=== PATIENT | female | born 1995 | race American Indian/Alaskan Native ===

== ENCOUNTER 2018-04-29 01:08 | Inpatient (IN) | payer SELFPAY ==
--- NOTE | 2018-04-29 02:14 | History and Physical Report ---
History of Present Illness Date of examination: 04/29/18 Chief complaint: Contractions History of present illness: States EDC 04/22/2018, received PNC up to 36 weeks however she does not know the name of the name of the clinic or the name of the providers. She stopped going to the clinic b/c she did not have insurance. She presents now c/o contractions. Past History Past Medical History: no pertinent history Past Surgical History: no surgical history [employer] History: denies: chlamydia, gonorrhea, hepatitis B, hepatitis C, herpes, HIV , syphilis, trichomonas - Obstetrical History Expected Date of Delivery: 04/22/18 Actual Gestation: 41 Week(s) 0 Day(s) : 2 Para: 1 #1 Method of Delivery: Vaginal Medications and Allergies Allergies Allergy/AdvReac Type Severity Reaction Status Date / Time No Known Allergies Allergy Unverified 04/29/18 01:41 Review of Systems Genitourinary: contractions - Vital Signs Vital signs: Vital Signs Pulse Pulse Ox 130 H 84 04/29/18 01:30 04/29/18 01:30 Temp Pulse Resp BP Pulse Ox 97.6 F 88 18 99/57 100 04/29/18 01:35 04/29/18 02:06 04/29/18 01:35 04/29/18 01:35 04/29/18 02:06 - Physical Exam Lungs: Positive: Normal air movement Abdomen: Negative: tenderness, guarding - Obstetrical FHR: other (patient will not remain still to adequately monitor FHT's) Cervical Dilatation: 5 (per RN) Results All other labs normal. Assessment and Plan - Patient Problems (1) 41 weeks gestation of Current Visit: Yes Status: Acute (2) Limited care in third trimester Current Visit: Yes Status: Acute
[2018-04-29] MEDS ORDERED: ZOFRAN IV PRN ×2 (02:18→05:27)
[2018-04-29] MEDS ORDERED: XYLOCAINE 2% INFILTRATI ONE ×2 (02:18→03:51)
[2018-04-29] MEDS ORDERED: MINERAL OIL PO PRN (02:18)
[2018-04-29] MEDS ORDERED: BRETHINE IVP PRN (02:18)
[2018-04-29] MEDS ORDERED: SUBLIMAZE IV PRN (02:18)
[2018-04-29] MEDS ORDERED: NUBAIN IV PRN (02:18)
[2018-04-29] MEDS ORDERED: STADOL IV PRN (02:18)
[2018-04-29] MEDS ORDERED: POLYCILLIN/NS 2 GM/100 ML 2 GM/100 ML BAG IV ONE (02:18)
[2018-04-29] MEDS ORDERED: NARCAN 0.4 MG/1 ML IV PRN (02:18)
[2018-04-29] MEDS ORDERED: BRETHINE SUB-Q PRN (02:18)
[2018-04-29] MEDS ORDERED: PITOCin/NS 30 UNIT/500ML 30 UNITS/500 ML BAG IV SCH (03:00)
[2018-04-29] MEDS ORDERED: LACTATED RINGERS 1,000 ML IV SCH (03:00)
[2018-04-29] MEDS ORDERED: PITOCin/NS 20 UNIT/1000ML DRIP 20 UNITS/1,000 ML BAG IV SCH ×2 (03:00→05:27)
--- NOTE | 2018-04-29 03:26 | Ultrasound Report ---
FINAL REPORT PROCEDURE: US OB LIMITED TECHNIQUE: Real-time limited sonographic examination was performed for evaluation of size, position, heartbeat, fluid volume for each fetus with image documentation (1 or more fetuses). CPT 13256 HISTORY: Head Position COMPARISON: No prior studies are available for comparison. FINDINGS: Fetus is in a cephalic presentation. IMPRESSION: The fetus is in cephalic presentation.
[2018-04-29] MEDS ORDERED: MINERAL OIL ONE (03:46)
--- NOTE | 2018-04-29 04:04 | Procedure Note ---
OB Delivery Note - Delivery Date of Delivery: 04/29/18 Surgeon: LISA GOMEZ Estimated blood loss: 200cc - Vaginal Delivery presentation: vertex Delivery position: OA Intrapartum events: no care, meconium Delivery induction: none Delivery monitor: external FHT, external uterine Route of delivery: Delivery placenta: spontaneous (intact) Delivery cord: nuchal cord (x2) Anesthesia: none - A at 1 minute: 8 at 5 minutes: 8 (6#8oz) Gender: Male
[2018-04-29 04:07] LABS: Hematocrit 33.3 % (30.3-42.9); Mean Corpuscular HGB Conc 33 % (30-34); Mean Corpuscular Hemoglobin 32 pg (28-32); Mean Corpuscular Volume 96 fl (79-97); Platelet Count 218 K/mm3 (140-440); Red Blood Count 3.48 M/mm3 (3.65-5.03); Red Cell Distribution Width 13.6 % (13.2-15.2)
[2018-04-29 04:38] LABS: Rubella IgG Antibody Immune (Immune)
[2018-04-29 05:10] LABS: Hepatitis C Virus Antibody Non-Reactive (NonReactive)
[2018-04-29] MEDS ORDERED: BENADRYL PO PRN (05:27)
[2018-04-29] MEDS ORDERED: HEMABATE IM PRN (05:27)
[2018-04-29] MEDS ORDERED: CYTOTEC PR PRN ×2 (05:27→06:00)
[2018-04-29] MEDS ORDERED: PHENERGAN PR PRN (05:27)
[2018-04-29] MEDS ORDERED: METHERGINE IM PRN (05:27)
[2018-04-29] MEDS ORDERED: TUCKS PAD TP PRN (05:27)
[2018-04-29] MEDS ORDERED: DULCOLAX PR PRN (05:27)
[2018-04-29] MEDS ORDERED: PHENERGAN PO PRN (05:27)
[2018-04-29] MEDS ORDERED: SODIUM CHLORIDE FLUSH SYRINGE 10 ML IV NR (05:27)
[2018-04-29] MEDS ORDERED: TYLENOL PO PRN (05:27)
[2018-04-29] MEDS ORDERED: MILK OF MAGNESIA PO PRN (05:27)
[2018-04-29] MEDS ORDERED: LANSINOH TP PRN (05:27)
[2018-04-29] MEDS ORDERED: MINERAL OIL PO ONE (05:32)
[2018-04-29] MEDS ORDERED: AMPICILLIN/NS 1 GM/50 ML 1 GM/50 ML BAG IV SCH (06:21)
[2018-04-29] MEDS: MOTRIN PO SCH ×2 (12:24→18:07)
[2018-04-29 16:13] LABS: Hematocrit 36.1 % (30.3-42.9); Hemoglobin 12.3 gm/dl (10.1-14.3)
[2018-04-30] MEDS ORDERED: BOOSTRIX IM ONE (06:00)
[2018-04-30 07:02] LABS: Amphetamine Screen,Urine PRESUMPTIVE NEGATIVE; Benzodiazepines Screen,Urine PRESUMPTIVE NEGATIVE; Cannabinoid Screen,Urine PRESUMPTIVE NEGATIVE; Cocaine Screen,Urine PRESUMPTIVE NEGATIVE; Methadone Screen,Urine PRESUMPTIVE NEGATIVE; Opiate Screen,Urine PRESUMPTIVE NEGATIVE
[2018-04-30] MEDS: MOTRIN PO SCH ×3 (12:00→18:25)
--- NOTE | 2018-04-30 13:24 | Discharge Summary ---
Providers - Providers Date of Admission: 04/29/18 04:00 Date of discharge: 04/30/18 (desires d/c home) Attending physician: LISA GOMEZ 04/29/18 05:27 Consult to Executive Vice President Of Sales [CONS] Routine Reason For Exam: assistance with , SNS Primary care physician: LISA GOMEZ Hospitalization Reason for admission: Labor, limited care Condition: Good Pertinent studies: post delivery H&H 12.3/36.1 Procedures: vaginal Hospital course: uncomplicated vaginal and course. pt offered depo - declined Disposition: DC-01 TO HOME OR SELFCARE - Discharge Diagnoses (1) (normal spontaneous vaginal delivery) Status: Acute Core Measure Documentation - Palliative Care Palliative Care/ Comfort Measures: Not Applicable - Core Measures Any of the following diagnoses?: none Exam - Constitutional Vitals: Temp Pulse Resp BP Pulse Ox 98.4 F 71 16 118/72 99 04/30/18 07:00 04/30/18 07:00 04/30/18 07:00 04/30/18 07:00 04/29/18 17:49 General appearance: Present: no acute distress, well-nourished - EENT Eyes: Present: PERRL ENT: hearing intact, clear oral mucosa - Neck Neck: Present: supple, normal ROM - Respiratory Respiratory effort: normal Respiratory: bilateral: CTA - Cardiovascular Heart Sounds: Present: S1 & S2. Absent: rub, click - Extremities Extremities: pulses symmetrical, No edema Peripheral Pulses: within normal limits - Abdominal General gastrointestinal: Present: soft, non-tender, non-distended, normal bowel sounds Female genitourinary: Present: normal - Integumentary Integumentary: Present: clear, warm, dry - Musculoskeletal Musculoskeletal: gait normal, strength equal bilaterally - Psychiatric Psychiatric: appropriate mood/affect, intact judgment & insight - Neurologic Neurologic: CNII-XII intact, moves all extremities - Additional findings Additional findings: Bottle feeding, lochia scant, fundus firm Plan Activity: no restrictions Diet: regular Follow up with: LISA GOMEZ MD [Primary Care Provider] - 06/01/18 (Congratulations, please call [phone] to schedule visit in 4 weeks. Call for any questions or concerns. )
[2018-05-01 09:37] VITALS: BP 96/57
== END 2018-05-01 10:00 | disposition home or self-care (01) | DRG 775 ==
LOC: TRG 01:08 → LD 04:00 → OB 05:36
PROVIDERS: ADMIT Obstetrics & Gynecology; ATTEND Obstetrics & Gynecology
PROC: 10E0XZZ Delivery of Products of Conception, External Approach (ICD-10-PCS; principal; 2018-04-29)
DX: O69.81X0 Labor and delivery complicated by cord around neck, without compression, not applicable or unspecified (principal); O77.0 Labor and delivery complicated by meconium in amniotic fluid; Z3A.41 41 weeks gestation of pregnancy; Z37.0 Single live birth
CPT/HCPCS: 36415; 76815; 80307; 85014; 85018; 85027; 86592; 86706; 86762; 86803; 86850; 86900; 86901; 87806; 88307; J2590